=== PATIENT | male | born 1955 | race Caucasian/White ===

== ENCOUNTER 2017-08-08 06:37 | Day surgery (SDC) | payer OTHER ==
[2017-08-08] MEDS ORDERED: NS 1,000 ML IV ONE (06:40)
[2017-08-08] MEDS ORDERED: diphenhydrAMINE 25 MG CAP PO ONE (06:40)
[2017-08-08] MEDS ORDERED: ceFAZolin 2 GM/DEXTROSE 100 ML IV ONE (06:40)
[2017-08-08] MEDS ORDERED: BACITRACIN IRRIGATION/NS 50,000 UNITS/1,000 ML BTL IRR ONE (06:40)
[2017-08-08] MEDS ORDERED: DIAZEPAM 5 MG TAB PO ONE (06:40)
--- NOTE | 2017-08-08 06:54 | CPEKG ---
Heart Rate: 60 RR Interval: 1000 P-R Interval: 244 QRSD Interval: 144 QT Interval: 472 QTC Interval: 472 P [place]: 73 QRS [place]: -77 T Wave [place]: 29 EKG Severity - ABNORMAL ECG - EKG Impression: ATRIAL-SENSED VENTRICULAR-PACED RHYTHM Electronically Signed By: Jenny Rodriguez 08-Aug-2017 08:31:11
[2017-08-08 07:13] LABS: PLATELET COUNT 157 10^3/uL (150-400)
[2017-08-08 07:24] LABS: INR 0.95 (0.83-1.16); PROTIME(PATIENT) 12.9 SEC (12.0-15.0)
[2017-08-08] MEDS ORDERED: fentaNYL 100 MCG/2 ML INJ ONE (07:29)
[2017-08-08] MEDS ORDERED: MIDAZOLAM 2 MG/2 ML VIAL ONE (07:29)
[2017-08-08] MEDS ORDERED: LIDO/EPI 1% **for epidural** 30 ML SDV ONE (07:29)
[2017-08-08] MEDS ORDERED: LIDOCAINE 1% 300 MG/30 ML SDV ONE (07:29)
[2017-08-08] MEDS ORDERED: BUPIVACAINE 0.5% 30 ML SDV ONE (07:30)
--- NOTE | 2017-08-08 08:12 | PDPROPOC ---
Sedation Plan of Care Sedation Plan of Care: vital signs stable, mental status noted, patient educated of risks, benefits, alternatives, patient can tolerate sedation ( possible etomidate) ASA Classification: ASA 3 Planned drugs: fentanyl, midazolam Mallampati Score: Class 3 Mallampati Reference Image: Patient passed 3-3-2 rule?: Yes
--- NOTE | 2017-08-08 08:15 | PDGENHP ---
History & Physical Chief Complaint: pacemaker is end of life History of Present Illness: 61 year old with prior stent and pacemaker placement. He is pacer dependent and does have complete heart block without an escape rhythm all the way down to 30 beats per minute. He needs replacement of his device. I explained the risk benefit of a temporary wire but I do not want to invade the groin because of his plans for international travel unless absolutely necessary. Pertinent Past, Social, Family History: patient is about to travel to [place] and device is end of life. He does not smoke abuse drugs or alcohol. Relevant Physical Exam: pt is awake alert and oriented X3. He has clear lung ramirez a good airway and regular ans strong heartbeat without murmur. Skin warm and dry. Cardiorespiratory Assessment: Please see above...
--- NOTE | 2017-08-08 09:13 | EPPROC ---
Electrophysiology Procedure Note: PROCEDURE: Dual-chamber pacemaker replacement. DATE OF PROCEDURE: 08/08/2017 EXPLANTED DEVICE: [employer] IP[employer], Model: 5826 serial #[id number]. IMPLANTED DEVICE: Etrinsa 8 DR-T, serial #[id number]. LEADS: The right atrial lead is a [employer] Tendril ST Optim 1888TC/52 Cm , serial # [id number]. The right ventricular lead is a [employer] Tendril SDX 1688TC/58 cm, serial # [id number]. COMPLICATIONS: None PER DIEM RN: Willard Hobson MD INDICATION AND APPROPRIATE USE CRITERIA: The device is being replaced for SERVANDO alerts. The device was originally replaced on 04/21/2008 for complete heart block. PROCEDURE IN DETAIL: After informed consent was obtained and n.p.o. status was confirmed, the region of the left subclavicular fossa was cleaned, prepped and draped in a sterile fashion. Approximately 20 mL of 1% lidocaine was utilized for local anesthesia. The skin was sharply incised with a #10 blade. Electrocautery and local pressure were used for hemostasis. Sharp and blunt dissection was used to access the pacemaker pocket overlying the pectoralis major fascia. The pocket was thoroughly flushed and checked for bleeding. Hemostasis was established and the old device was removed from the pocket. The atrial and ventricular lead set screws were loosened. The atrial lead serial number was checked and placed in the upper pole lead housing of the new pulse generator and set screw firmly applied. The procedure was repeated for the RV lead. Ventricular lead threshold was tested and found to be 1.0 V at 1.0 ms width. R-wave amplitude was not measured secondary to no escape beat from the ventricle (pacer dependent). Lead impedance was 360 Ohms. Atrial lead threshold was tested at 1.0 V at 0.5 ms width. P-wave amplitude was 3.6 mV, lead impedance was 354 Ohms. The device was placed in the pocket and sutured in place with #0 Ethibond. The skin was closed with a 3-layered 3-0 Vicryl, 2-0 Vicryl and 4-0 Monocryl repair with excellent wound edge opposition and hemostasis documented. The patient returned to the post cath recovery unit in good and stable condition where a stat postoperative EKG will be obtained. FINAL IMPRESSION: Successful elective pulse generator replacement without immediate complication.
--- NOTE | 2017-08-08 10:04 | CPEKG ---
Heart Rate: 66 RR Interval: 909 P-R Interval: 212 QRSD Interval: 146 QT Interval: 460 QTC Interval: 482 P [place]: -75 QRS [place]: -75 T Wave [place]: 53 EKG Severity - ABNORMAL ECG - EKG Impression: ATRIAL-VENTRICULAR DUAL-PACED RHYTHM EKG Impression: COMPARED WITH AUGUST 08, 2017 AT 6:52 A.M., ATRIAL PACING NOW SEEN Electronically Signed By: Jenny Rodriguez 08-Aug-2017 18:12:55
== END 2017-08-08 11:49 | disposition home or self-care (01) ==
LOC: FCATH 06:37
PROVIDERS: ATTEND Internal Medicine Cardiovascular Disease
PROC: 0JH60PZ Insertion of Cardiac Rhythm Related Device into Chest Subcutaneous Tissue and Fascia, Open Approach (ICD-10-PCS; principal; 2017-08-08)
PROC: 0JPT0PZ Removal of Cardiac Rhythm Related Device from Trunk Subcutaneous Tissue and Fascia, Open Approach (ICD-10-PCS; principal; 2017-08-08)
DX: Z45.018 Encounter for adjustment and management of other part of cardiac pacemaker (principal); I21.9 Acute myocardial infarction, unspecified; Z95.5 Presence of coronary angioplasty implant and graft
CPT/HCPCS: C1785; J0690; J2250; J3010